=== PATIENT | female | born 1960 | race Caucasian/White ===

== ENCOUNTER 2016-07-22 10:46 | Outpatient (CLI) | payer OTHER ==
[2016-07-22 11:03] LABS: Hemoglobin A1c 7.1 % (4.0-6.0)
[2016-07-22 11:08] LABS: ALT (SGPT) 48 U/L (0-55); AST (SGOT) 29 U/L (5-34); Albumin 4.6 g/dL (3.5-5.0); Alkaline Phosphatase 91 U/L (40-150); Anion Gap 14 mmol/L (10-20); BUN (Urea Nitrogen) 13 mg/dL (9.8-20.1); Bilirubin, Total 0.9 mg/dL (0.2-1.2); Calc. Creatinine Clearance 0 mL/min (70-130); Calcium 9.6 mg/dL (7.8-10.44); Carbon Dioxide 28 mmol/L (22-29); Cardiac Risk 4.1 (Less than 4.5); Chloride 102 mmol/L (98-107); Cholesterol 186 mg/dL (< 200 Desired); Estimated GFR-MDRD 76; Glucose 134 mg/dL (70-105); HDL Cholesterol 45 mg/dL (>60 Neg Risk); LDL Cholesterol, Calculated 112 mg/dL; Potassium 4.2 mmol/L (3.5-5.1); Protein, Total 7.6 g/dL (6.0-8.3); Sodium 140 mmol/L (136-145); Triglycerides 143 mg/dL (Less than 150)
== END 2016-07-22 10:47 | disposition home or self-care (01) ==
LOC: NAVSJIPCSP 10:46
PROVIDERS: ATTEND Internal Medicine
DX: E03.9 Hypothyroidism, unspecified (principal); E78.5 Hyperlipidemia, unspecified
CPT/HCPCS: 36415; 80053; 80061; 83036; 84443

== ENCOUNTER 2016-07-24 08:44 | Outpatient (CLI) | payer OTHER ==
[2016-07-24 09:15] LABS: Bilirubin Negative (Negative); Blood, Urine Small (Negative); Clarity Slightly Cloudy (Clear); Glucose, Urine (Dipstick) 100 mg/dL (Negative); Leukocyte Trace (Negative); Nitrite Negative (Negative); Protein, Urine (Dipstick) 30 mg/dL (Neg-Trace); Specific Gravity, Urine 1.025 (1.005-1.030); Urobilinogen 0.2 mg/dL (0.2-1.0); pH, Urine 5.5 (5.0-9.0)
[2016-07-24 09:32] LABS: Bacteria/HPF 1+ HPF (None Seen); Other Microscopic Description NO; RBC/HPF 0-3 HPF (0-3)
== END 2016-07-24 08:45 ==
LOC: NAVSJIPCSP 08:44 → NAV LABSP 08:45
PROVIDERS: ATTEND Internal Medicine
DX: N39.0 Urinary tract infection, site not specified (principal)
CPT/HCPCS: 81003; 81015; 87086

== ENCOUNTER 2021-04-08 16:55 | Outpatient (CLI) | payer OTHER ==
[2021-04-09 15:32] LABS: SARS-CoV-2 NAA Rapid Test Not Detected (NotDetected)
== END 2021-04-08 16:56 | disposition home or self-care (01) ==
LOC: NAV OCC 16:55
PROVIDERS: ATTEND Family Medicine
DX: Z01.812 Encounter for preprocedural laboratory examination (principal); Z20.822 Contact with and (suspected) exposure to COVID-19
CPT/HCPCS: U0002

== ENCOUNTER 2022-07-19 19:55 | Outpatient (CLI) | payer BC ==
[2022-07-19 20:52] LABS: Hemoglobin 14.6 g/dL (12.0-16.0); Mean Corpuscular HGB CONC 33.3 g/dL (32.0-36.0); Mean Corpuscular Hemoglobin 29.7 pg (27.0-31.0); Mean Corpuscular Volume 89.3 fl (78.0-98.0); Mean Platelet Volume 8.2 fL (7.4-10.4); Platelet Count 178 10x3/uL (130-400); RBC Distribution Width 12.5 % (11.5-14.5); White Blood Cell (WBC) Count 5.3 10x3/uL (4.8-10.8)
[2022-07-19 21:06] LABS: ALT (SGPT) 52 U/L (8-55); AST (SGOT) 84 U/L (5-34); Albumin 4.4 g/dL (3.4-4.8); Alkaline Phosphatase 66 U/L (40-110); Anion Gap 16 mmol/L (10-20); BUN (Urea Nitrogen) 11 mg/dL (9.8-20.1); Bilirubin, Total 1.2 mg/dL (0.2-1.2); Calc. Creatinine Clearance 0 mL/min (70-130); Calcium 9.5 mg/dL (7.8-10.44); Carbon Dioxide 22 mmol/L (23-31); Chloride 106 mmol/L (98-107); Estimated GFR 85; Globulin 2.8 g/dL (2.4-3.5); Glucose 162 mg/dL (80-115); Magnesium 1.9 mg/dL (1.6-2.6); Potassium 3.6 mmol/L (3.5-5.1); Protein, Total 7.2 g/dL (5.8-8.1); Sodium 140 mmol/L (136-145)
== END 2022-07-19 19:56 | disposition home or self-care (01) ==
LOC: NAV CT 19:55
PROVIDERS: ATTEND Family Medicine
DX: R51.9 Headache, unspecified (principal); R42 Dizziness and giddiness
CPT/HCPCS: 36415; 70450; 80053; 83735; 85027

== ENCOUNTER 2025-01-30 08:22 | Outpatient (CLI) | payer BC | END 2025-01-30 08:23 | disposition home or self-care (01) | LOC: NAV RAD 08:22 | PROVIDERS: ATTEND Emergency Medicine | DX: M25.532 Pain in left wrist (principal); M19.032 Primary osteoarthritis, left wrist; S69.92XA Unspecified injury of left wrist, hand and finger(s), initial encounter ==